=== PATIENT | female | born 1995 | race Caucasian/White ===

== ENCOUNTER → 2023-02-24 08:49 | Outpatient (CLI) | payer OTHER, SELFPAY | PROVIDERS: PCP Physician Assistant; Visit Provider Student in an Organized Health Care Education/Training Program | DX: H60.399 Other infective otitis externa, unspecified ear (principal) | CPT/HCPCS: 87070; 87075; 87205 ==

== ENCOUNTER 2023-03-02 07:04 | Emergency (ER) | payer OTHER, SELFPAY ==
[2023-03-02 07:20] VITALS: BP 140/93; PULSE 99; RESP 18; TEMP 36.7; O2SAT 100; BMI 22.1
--- NOTE | 2023-03-02 07:41 | ED.SKABFB ---
HPI - Skin/Abscess/Foreign Bdy General Chief complaint: Skin/Abscess/Foreign Body Stated complaint: piercing in left ear that was infected Time Seen by Provider: 03/02/23 07:32 Source: patient Mode of arrival: Ambulatory Limitations: no limitations History of Present Illness HPI narrative: Patient seen in urgent Care/walk-in clinic 6 days ago for infected earring in the left ear. Placed on 10 days of doxycycline, on Bactroban. She states the swelling has gone down a lot. However the backside of the hearing has been covered by skin now. This is not a new earring. The earring piercing was done years ago. No history of diabetes or cellulitis. Pain free at this time. She is needing the earring to be removed. No hearing changes. Related Data Previous Rx's Medication Instructions Recorded doxycycline hyclate 100 mg capsule 100 mg PO BID 10 days #20 caps 02/24/23 mupirocin 2 % topical ointment 1 applic topical BID #22 grams 02/24/23 Allergies Allergy/AdvReac Type Severity Reaction Status Date / Time No Known Drug Allergies Allergy Unverified 02/24/23 08:09 Review of Systems Review of Systems Narrative: GENERAL: negative chills, fatigue, malaise, fever, sweats. HEENT: negative sinus pain, ear pain, sore throat, positive foreign body to left ear RESPIRATORY: negative dyspnea, cough CARDIOVASCULAR: negative chest pain, palpitations GASTROINTESTINAL: negative nausea, vomiting, abdominal pain : negative dysuria, frequency, hematuria MUSCULOSKELETAL: negative muscle or bony pain SKIN: negative rash, skin lesions NEUROLOGIC: negative weakness, numbness ROS Unobtainable: All systems reviewed & are unremarkable except as noted in HPI and below Patient History Social History Smoking Status: Never smoker Smoking Status: Never smoker alcohol intake frequency: holidays/special occasions only Substance Use Type: does not use Exam Narrative Exam Narrative: GENERAL: in no distress, not toxic not dyspneic HEAD: Normocephalic. EYES: Pupils equal round ENT: Mucous membranes moist. Examination of left ear. At the mid portion of the auricle, anteriorly the earring is visible. However posteriorly there is mild edema with skin covering over the backside of the earring. It is palpable. Nontender. Wound areas clean dry, intact. No discharge. Mild erythema at the anterior portion. No tragus tenderness. No mastoid tenderness or fullness NEURO: AOx4. SKIN: Warm and dry PSYCH: Not anxious, is cooperative Initial Vital Signs Initial Vital Signs: Vital Signs Temperature 98.1 F 03/02/23 07:20 Pulse Rate 99 H 03/02/23 07:20 Respiratory Rate 18 03/02/23 07:20 Blood Pressure 140/93 H 03/02/23 07:20 Pulse Oximetry 100 03/02/23 07:20 Oxygen Delivery Method Room Air 03/02/23 07:20 Course Orders Ordered: Discontinued Medications Diphtheria/Tetanus/Acell Pertussis (Tet,Diph,Pertuss(Acell),Vac/Pf 0.5 Ml Syringe) 0.5 ml IM .ONCE ONE Stop: 03/02/23 07:41 Last Admin: 03/02/23 07:50 Dose: 0.5 ml Documented By: [place] Vital Signs Vital signs: Vital Signs - 8 hr 03/02/23 07:20 Temperature 98.1 F Pulse Rate 99 H Respiratory Rate 18 Blood Pressure 140/93 H Pulse Oximetry 100 Oxygen Delivery Method Room Air MDM - Skin/Abscess/Foreign Bdy MDM Narrative Medical decision making narrative: Patient seen in urgent Care/walk-in clinic 6 days ago for infected earring in the left ear. Placed on 10 days of doxycycline, on Bactroban. She states the swelling has gone down a lot. However the backside of the hearing has been covered by skin now. This is not a new earring. The earring piercing was done years ago. No history of diabetes or cellulitis. Pain free at this time. She is needing the earring to be removed. No hearing changes. After history and exam Tdap, consult ENT MDM CC: Left ear foreign body Complicating co-morbidities: None Data collected from: Patient Medical records reviewed: Walk-in clinic notes from 6 days ago Differential considered: Includes but not limited to cellulitis abscess retained foreign body Exam documented above, pertinent findings include: Retained foreign body left ear Consultations: 7:[address] Sidney Watts, otolaryngology/ENT, not urgent to take out hearing as it is healing and improving. Removal of ear ring can be done in the office setting. Patient to call office today, may need referral from insurance company. Treatments: Tdap Re-evaluations: Reviewed with patient physical exam as well as my discussion with Dr. Watts, she does agree with treatment plan. She will continue to complete the 10 day course of doxycycline as it is helping and improving. Return precautions reviewed with her. She will call her [employer] insurance for any referral as needed. She will call Dr. Watts office today for next appointment time available. Nontoxic at discharge. She desires discharge home. Return precautions reviewed with her. Discussion: Appropriate for discharge home. Infection is healing, no urgent removal of earring indicated at this time. I did review with Otolaryngology Dr. Watts. Appropriate for office setting to remove the ear ring Diagnosis: Left ear foreign body Discharge Plan Departure Patient Disposition: Home Clinical Impression: Foreign body in ear lobe Qualifiers: Encounter type: initial encounter Laterality: left Qualified Code(s): S00.452A - Superficial foreign body of left ear, initial encounter Instructions: DI for Wound Infection Activity Restrictions/Additional Instructions: Please call Dr. Sidney Watts, [facility], office today to make appointment. You need to be seen in the [place] office with him. Please inform the office staff that he was contacted today. You may need referral from your insurance company for visit. Please do continue and finish the course of antibiotics and ointment. Return if worse if any questions or concerns. The earring will be needed to be removed in the office with Dr. Sidney Watts Prescriptions: No Action doxycycline hyclate 100 mg capsule 100 mg PO BID 10 Days Qty: 20 0RF mupirocin 2 % ointment 1 applic topical BID Qty: 22 0RF Referrals: Hilda Tobar PA-C [Primary Care Provider] - Sidney Watts MD [Physician] - Stand Alone Forms: Patient Portal/API
[2023-03-02] MEDS: TET,DIPH,PERTUSS(ACELL),VAC/PF 0.5 ML SYRINGE IM (07:50)
== END 2023-03-02 07:52 | disposition home or self-care (01) ==
PROVIDERS: Emergency Provider Emergency Medicine; PCP Physician Assistant
DX: S00.452A Superficial foreign body of left ear, initial encounter (principal); Z23 Encounter for immunization
CPT/HCPCS: 90471; 99283; 90715

== ENCOUNTER → 2024-09-04 15:04 | Outpatient (CLI) | payer OTHER, SELFPAY ==
[2024-09-04 16:02] LABS: Add Manual Diff / Slide Review NO; Basophils Absolute Auto 0 /uL (0-100); Basophils Percent Auto 0.4 % (0-2); Eosinophils Absolute Auto 100 /uL (0-450); Eosinophils Percent Auto 0.7 % (2-4); Hematocrit 37.4 % (36-46); Hemoglobin 12.8 g/dL (12.0-16.0); Lymphocytes Absolute Auto 2000 /uL (1100-4500); Lymphocytes Percent Auto 19.8 % (25-40); Mean Corpuscular HGB Conc 34.1 % (30-36); Mean Corpuscular Hemoglobin 31.3 PG (26-34); Mean Corpuscular Volume 91.9 fL (80-100); Monocytes Absolute Auto 700 /uL (0-900); Monocytes Percent Auto 6.8 % (3-14); Neutrophils Absolute Auto 7300 /uL (1500-7000); Neutrophils Percent Auto 72.3 % (50-75); Platelet Count 300 X10^3/uL (150-400); Red Blood Cell Count 4.08 X10^6/uL (4.0-5.2)
[2024-09-05 15:41] LABS: Hepatitis B Surface Antigen NEGATIVE s/c (NEGATIVE)
[2024-09-05 16:34] LABS: HIV 1 & 2 Ab/Ag 4th Gen Combo NEGATIVE (NEGATIVE); Hep C Virus Ab w/Reflex Quant NEGATIVE s/c (NEGATIVE)
[2024-09-06 05:40] LABS: RPR Screen Non Reactive (Non Reactive)
[2024-09-06 09:09] LABS: Varicella IgG Antibody Reactive (Non Reactive)
== END ==
PROVIDERS: PCP Student in an Organized Health Care Education/Training Program; Referring Provider Student in an Organized Health Care Education/Training Program; Visit Provider Student in an Organized Health Care Education/Training Program
DX: Z34.00 Encounter for supervision of normal first pregnancy, unspecified trimester (principal)
CPT/HCPCS: 36415; 80055; 86787; 86803; 86850; 86900; 86901; 87389

== ENCOUNTER → 2024-11-21 06:43 | Outpatient (CLI) | payer OTHER, SELFPAY ==
--- NOTE | 2024-11-21 06:44 | DI.US.S_ITS ---
PROCEDURE: US OB >= 14 WEEKS FETUS INDICATIONS: anatomy scan OUTSIDE/PRIOR DATING DATA: Last menstrual period (LMP): 07/03/2024 LMP-based estimated date of delivery (RENAE): 04/09/2025 First dating scan (date and location): 09/04/2024 Estimated date of delivery (RENAE) from first dating scan: 04/09/2025. The calculations are made using the working RENAE of 04/09/2025. TECHNIQUE: Real-time scanning was performed of the fetus, with image documentation and biometric measurements. Endovaginal scanning: Not performed COMPARISON: None. FINDINGS: General: A single living intrauterine gestation is present. Presentation: Breech Placenta: Placental position is posterior, without previa. Amniotic fluid index: 14.0 cm, normal range is 5-24 cm. Single deepest vertical pocket is 4.6 cm. heart rate: 141 beats per minute. Maternal cervical canal: Closed and measures 3.2 cm long. Normal lower limit is 2.5 cm. biometrics: Biparietal diameter: 4.9 cm, 20 weeks, 6 days. Head circumference: 18.1 cm, 20 weeks, 3 days. Abdominal circumference: 15.2 cm, 20 weeks, 3 days. Femur length: 3.4 cm, 20 weeks, 5 days. Clinically estimated gestational age: 20 weeks, 1 day Composite gestational age from present scan: 20 weeks, 4 days Estimated weight and percentile: 364 grams, 71 percent. Anatomic survey: Neuro: Ventricles are non-dilated at less than 10 mm. Cisterna magna is normal at 3-11 mm. Cerebellum is normal in size and morphology. Nuchal skin fold: Normal at less than 6 mm between 14-21 weeks gestational age. Face: Nose and lips, facial profile are normal. Spine: No evidence for spina bifida. Heart: 4-chambered heart is present, with normal ventricular outflow tracts. Diaphragm: Diaphragm is intact. Stomach: Left-sided stomach is present. Kidneys: No hydronephrosis. Normal is less than 5 mm in 2nd trimester, less than 7 mm in 3rd trimester. Cord: 3-vessel cord has orthotopic insertion. Bladder: Normal in size. Extremities: All 4 extremities identified. IMPRESSION: 1. Single live intrauterine gestation with fetus in breech presentation. heart rate is 141 beats per minute. Normal FREDDY at 14.0 cm. 2. Normal growth. Estimated weight is at 71 percent. 3. Normal anatomic survey. We strive to produce accurate, complete, and clear reports of imaging services. To assist us in improving patient care, this report was composed using standard report templates and voice recognition software. Therefore, it may contain abnormal punctuation, insertions and/or omissions. Occasional wrong-word or sound-alike substitutions may occur. Though we review the report and make efforts to correct it, we do recommend that the report be read carefully in proper context to recognize any text inaccuracies. Dictated by: Donald Plasencia M.D. on 11/21/2024 at 11:40 Approved by: Donald Plasencia M.D. on 11/21/2024 at 11:43
== END ==
PROVIDERS: Family Provider Student in an Organized Health Care Education/Training Program; PCP Student in an Organized Health Care Education/Training Program; Referring Provider Student in an Organized Health Care Education/Training Program; Visit Provider Student in an Organized Health Care Education/Training Program
DX: O32.1XX0 Maternal care for breech presentation, not applicable or unspecified (principal); Z3A.28 28 weeks gestation of pregnancy
CPT/HCPCS: 76811

== ENCOUNTER → 2025-02-02 11:11 | Outpatient (CLI) | payer OTHER, SELFPAY | LOC: LAB 11:12 | PROVIDERS: Family Provider Student in an Organized Health Care Education/Training Program; PCP Student in an Organized Health Care Education/Training Program; Visit Provider Student in an Organized Health Care Education/Training Program | DX: N89.8 Other specified noninflammatory disorders of vagina (principal); Z3A.30 30 weeks gestation of pregnancy | CPT/HCPCS: 87210 ==

== ENCOUNTER → 2025-03-13 10:43 | Outpatient (CLI) | payer OTHER, SELFPAY ==
[2025-03-14 12:24] LABS: Strep Grp B PCR NEG for Grp B Strep
== END ==
PROVIDERS: PCP Student in an Organized Health Care Education/Training Program; Visit Provider Student in an Organized Health Care Education/Training Program
DX: Z34.93 Encounter for supervision of normal pregnancy, unspecified, third trimester (principal); Z3A.36 36 weeks gestation of pregnancy
CPT/HCPCS: 87653

== ENCOUNTER → 2025-03-26 10:29 | Outpatient (CLI) | payer OTHER, SELFPAY ==
[2025-03-26 10:52] LABS: Add Manual Diff / Slide Review NO; Hematocrit 39.6 % (36-46); Hemoglobin 13.7 g/dL (12.0-16.0); Lymphocytes Absolute Auto 2200 /uL (1100-4500); Mean Corpuscular HGB Conc 34.6 % (30-36); Mean Corpuscular Hemoglobin 31.6 PG (26-34); Mean Corpuscular Volume 91.2 fL (80-100); Platelet Count 217 X10^3/uL (150-400)
[2025-03-26 11:35] LABS: Alanine Aminotransferase 13 IU/L (<35); Albumin 3.8 g/dL (3.5-5.0); Albumin Globulin Ratio 1.3 (1.0-2.8); Alkaline Phosphatase 286 U/L (38-126); Blood Urea Nitrogen 14 mg/dL (7-17); Calcium 9.6 mg/dL (8.4-10.2); Carbon Dioxide 19 mmol/L (22-32); Chloride 107 mmol/L (98-107); Estimated Glomerular Filt Rate > 60 mL/min (>60); Globulin 3.0 g/dL (1.7-4.1); Glucose 87 mg/dL (70-99); HEMOLYSIS < 15 (0-50); Potassium 4.1 mmol/L (3.4-5.1); Sodium 136 mmol/L (137-145); Total Protein 6.8 g/dL (6.3-8.2)
== END ==
PROVIDERS: PCP Student in an Organized Health Care Education/Training Program; Referring Provider Student in an Organized Health Care Education/Training Program; Visit Provider Student in an Organized Health Care Education/Training Program
DX: L29.89 Other pruritus (principal)
CPT/HCPCS: 36415; 80053; 82239; 85025

== ENCOUNTER 2025-03-29 09:15 | Outpatient (CLI) | payer OTHER, SELFPAY ==
[2025-03-29 10:13] LABS: Add Manual Diff / Slide Review NO; Hematocrit 38.3 % (36-46); Hemoglobin 13.4 g/dL (12.0-16.0); Lymphocytes Absolute Auto 1600 /uL (1100-4500); Mean Corpuscular HGB Conc 34.9 % (30-36); Mean Corpuscular Hemoglobin 31.9 PG (26-34); Mean Corpuscular Volume 91.4 fL (80-100); Platelet Count 191 X10^3/uL (150-400)
[2025-03-29 10:25] LABS: Alanine Aminotransferase 13 IU/L (<35); Albumin 3.8 g/dL (3.5-5.0); Albumin Globulin Ratio 1.2 (1.0-2.8); Alkaline Phosphatase 275 U/L (38-126); Blood Urea Nitrogen 14 mg/dL (7-17); Calcium 9.0 mg/dL (8.4-10.2); Carbon Dioxide 18 mmol/L (22-32); Chloride 111 mmol/L (98-107); Estimated Glomerular Filt Rate > 60 mL/min (>60); Globulin 3.2 g/dL (1.7-4.1); Glucose 80 mg/dL (70-99); HEMOLYSIS < 15 (0-50); Potassium 3.9 mmol/L (3.4-5.1); Sodium 137 mmol/L (137-145); Total Protein 7.0 g/dL (6.3-8.2); Uric Acid 6.0 mg/dL (2.5-6.2)
[2025-03-29 10:47] LABS: Protein (Total) Urine Random 12 mg/dL (0-12); Protein Creatinine Ratio Urine 0.30 GRAM/24H
--- NOTE | 2025-03-29 10:50 | PM.OBTRLD ---
Visit Information Visit Information Date of evaluation: 03/29/25 Primary OB Provider: Ami Albert Reason for Evaluation: Yes non-stress test Comments/Additional reasons for admission: This si a 30 yo G1 at 38w3d here for NST in setting of worsening pruritis. Awaiting bile acid labs. [facility] Medical History (Updated 03/26/25 @ 10:18 by Ami Albert MD) Infected pierced ear (~2022) Surgical History (Updated 08/22/24 @ 09:38 by Lilly Denise, RN) [place] teeth extracted Family History (Updated 08/22/24 @ 09:41 by Lilly Denise, RN) Father Adopted Scalp cyst Mother Hypothyroidism History of recurrent miscarriages Grandfather Hypothyroidism Depression Brother Depression Anxiety Social History marital status: number of children: 0 household members: spouse lives independently: Yes caregiver/support person: No housing: house pets and animals: Yes (dogs) education level: college (4 year degree) 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) current occupational exposures/hazards: No special ammy needs: No travel history: recent ([place]) seatbelt use: always helmet use: Yes water heater temp set < 120 deg: Yes working smoke detector in home: Yes fire extinguisher in home: Yes carbon monox detector in home: Yes firearms in home: No do you feel safe at home: Yes second hand exposure: Yes (friend who vapes) alcohol intake: former (occasional 1-2 drinks when not ) substance use type: does not use during the past year weight has: remained stable well-balanced diet: rarely or never daily servings fruits/ve-1 (1-2) caffeine: Yes (single cup coffee in AM) Type(s) of exercise: walking, bicycling and other (horseback riding) Objective Labs 03/29/25 09:53 03/29/25 09:53 Labs: Laboratory Results - last 24 hr 03/29/25 09:53 WBC 6.8 RBC 4.19 Hgb 13.4 Hct 38.3 MCV 91.4 MCH 31.9 MCHC 34.9 RDW 13.0 Plt Count 191 Neut % (Auto) 66.5 Lymph % (Auto) 23.0 L [place] % (Auto) 8.6 Eos % (Auto) 1.6 L Baso % (Auto) 0.3 Neut # (Auto) 4500 Lymph # (Auto) 1600 [place] # (Auto) 600 Eos # (Auto) 100 Baso # (Auto) 0 Sodium 137 Potassium 3.9 Chloride 111 H Carbon Dioxide 18 L BUN 14 Creatinine 0.87 Estimated GFR > 60 BUN/Creatinine Ratio 16.1 Glucose 80 Uric Acid 6.0 Calcium 9.0 Total Bilirubin 0.2 AST 26 ALT 13 Alkaline Phosphatase 275 H Total Protein 7.0 Albumin 3.8 Globulin 3.2 Albumin/Globulin Ratio 1.2 Blood Type O Positive Antibody Screen Negative Evaluation Evaluation Baseline heart rate: 125 Variability: Moderate (6-25) monitor accelerations: Present Monitor Decelerations: Late (one noted) Diagnosis, Plan/Disposition Plan/Disposition Plan: 30 yo G1 at 38w3d here for NST in setting of worsening pruritus while awaiting bile acids. NST reactive. CBC/CMP wnl. -safe for discharge home OB Disposition: home
== END 2025-03-29 11:01 | disposition home or self-care (01) ==
LOC: LABOR 11:34 → OB 03-30 09:33
PROVIDERS: PCP Student in an Organized Health Care Education/Training Program; Referring Provider Student in an Organized Health Care Education/Training Program; Visit Provider Student in an Organized Health Care Education/Training Program
DX: O26.893 Other specified pregnancy related conditions, third trimester (principal); L29.9 Pruritus, unspecified; Z3A.38 38 weeks gestation of pregnancy
CPT/HCPCS: 36415; 59025; 80053; 84550; 85025; 86850; 86900; 86901; G0378; G0379

== ENCOUNTER → 2025-04-04 14:50 | Outpatient (CLI) | payer OTHER, SELFPAY ==
--- NOTE | 2025-04-04 14:50 | DI.US.S_ITS ---
PROCEDURE: US OB LIMITED INDICATIONS: Growth Restriction OUTSIDE/PRIOR DATING DATA: Last menstrual period (LMP): 07/03/2024 LMP-based estimated date of delivery (RENAE): 04/09/2025 First dating scan (date and location): 09/04/2024 Estimated date of delivery (RENAE) from first dating scan: 04/09/2025 The calculations are made using the working RENAE of 04/09/2025 TECHNIQUE: Real-time scanning was performed of the fetus, with image documentation and biometric measurements. Endovaginal scanning: Not performed. COMPARISON: 11/21/2024. FINDINGS: General: A single living intrauterine gestation is present. Presentation: Vertex. Placenta: Placental position is posterior, without previa. Amniotic fluid index: 9.2 cm, normal range is 5-24 cm. Single deepest vertical pocket is 3.8 cm. heart rate: 119 beats per minute. Maternal cervical canal: Not well seen. biometrics: Biparietal diameter: 9.1 cm, 36 weeks, 6 days. Head circumference: 31.7 cm, 35 weeks, 4 days. Abdominal circumference: 32.7 cm, 36 weeks, 4 days. Femur length: 7.0 cm, 36 weeks 0 day. Clinically estimated gestational age: 39 weeks, 2 days Composite gestational age from present scan: 36 weeks, 2 days Estimated weight and percentile: 2922 g, 10%. Other: No cul cord is seen wrapped around the neck twice IMPRESSION: 1. Single live intrauterine gestation with fetus in vertex presentation. heart rate is 119 beats per minute. Normal FREDDY at 9.2 cm. 2. Estimated weight is at 10% as above. 3. Suggestion of nuchal cord around the neck twice suggest ultrasound follow-up. We strive to produce accurate, complete, and clear reports of imaging services. To assist us in improving patient care, this report was composed using standard report templates and voice recognition software. Therefore, it may contain abnormal punctuation, insertions and/or omissions. Occasional wrong-word or sound-alike substitutions may occur. Though we review the report and make efforts to correct it, we do recommend that the report be read carefully in proper context to recognize any text inaccuracies. Dictated by: Donald Plasencia M.D. on 04/04/2025 at 16:03 Approved by: Donald Plasencia M.D. on 04/04/2025 at 16:06
== END ==
LOC: US 14:50
PROVIDERS: PCP Student in an Organized Health Care Education/Training Program; Referring Provider Student in an Organized Health Care Education/Training Program; Visit Provider Student in an Organized Health Care Education/Training Program
DX: O36.5930 Maternal care for other known or suspected poor fetal growth, third trimester, not applicable or unspecified (principal); Z3A.39 39 weeks gestation of pregnancy
CPT/HCPCS: 76815

== ENCOUNTER 2025-04-04 19:45 | Outpatient (CLI) | payer OTHER, SELFPAY ==
--- NOTE | 2025-04-04 | DI.US.S_ITS ---
PROCEDURE: US UMBILICAL CORD DOPPLER INDICATIONS: GROWTH RESTRICTION OUTSIDE/PRIOR DATING DATA: Last menstrual period (LMP): 07/03/2024 LMP-based estimated date of delivery (RENAE): 04/09/2025 First dating scan (date and location): 09/04/2024 Estimated date of delivery (RENAE) from first dating scan: 04/09/2025 The calculations are made using the clinical RENAE of 04/09/2025. COMPARISON: Ob ultrasound 04/04/2025, 11/21/2024. TECHNIQUE: Real-time scanning was performed of the fetus, with image documentation. Color and pulse Doppler interrogation was then performed of the umbilical artery near its insertion into the placenta. FINDINGS: General: Single living intrauterine gestation is present in vertex presentation. heart rate of 157 beats per minute. Umbilical artery: Umbilical artery S/D ratio is of 2.7, 2.1 and 2.0 IMPRESSION: Normal umbilical artery S/D ratios. Approved by: Niki Collazo M.D.,Ph.D. on 04/04/2025 at 21:20
== END 2025-04-04 21:45 | disposition home or self-care (01) ==
LOC: LABOR 19:50 → OB 04-05 06:54
PROVIDERS: PCP Student in an Organized Health Care Education/Training Program; Referring Provider Student in an Organized Health Care Education/Training Program; Visit Provider Student in an Organized Health Care Education/Training Program
DX: O36.5930 Maternal care for other known or suspected poor fetal growth, third trimester, not applicable or unspecified (principal); Z3A.39 39 weeks gestation of pregnancy
CPT/HCPCS: 59025; 59050; 76820; G0378; G0379

== ENCOUNTER 2025-04-05 08:16 | Inpatient (IN) | payer OTHER, SELFPAY ==
--- NOTE | 2025-04-05 08:46 | PM.OBHP.IH.1 ---
OB HPI Date/Time Date of admission: 04/05/25 History of Present Condition Chief complaint: INDUCTION RENAE Calculator Estimated Delivery Date Method Current WG Current Estimate 04/09/25 LMP (Certain) 39w 3d Other Estimates 04/09/25 Ultrasound #1 39w 3d : 1 care: good care Dating criteria OB: LMP confirmed by 1st trimester US Ultrasounds: normal 1st trimester US, normal mid trimester US and abnormal US findings (EFW 10th percentile at 39 weeks) Obstetrical complications: growth restriction Medical complications OB: none Narrative: This is a 30 yo G1 at 39w3d here for mIOL for growth restriction discovered yesterday at 39w2d. EFW 10th percentile. Umbilical artery dopplers normal flow. otherwise complicated by itching (bile acids negative). GBS negative. Good movement. Indications Indication for induction OB: intra-uterine growth restriction Preadmission Labs Last OB Lab Results: Blood Type O Positive 03/29/25, 09:53 Antibody Screen Negative 03/29/25, 09:53 Hct, (36-46) 38.3 % 03/29/25, 09:53 Hgb, (12.0-16.0) 13.4 g/dL 03/29/25, 09:53 Hep Bs Antigen, (NEGATIVE) Negative s/c 09/04/24, 15:13 Hepatitis C Antibody, (NEGATIVE) Negative s/c 09/04/24, 15:13 Rubella Antibody, (>15) 335.0 IU/mL 09/04/24, 15:13 VZV IgG Antibody, (Non Reactive) Reactive 09/04/24, 15:13 Glucose 1 Hr 50 gm, (76-139) 85 mg/dL 01/02/25, 08:15 Group B Strep (PCR) Neg for grp b strep 03/13/25, 10:28 Glucose Tolerance Testin hr Genetic Screens: Cell-free DNA: Normal Evaluation Evaluation Baseline heart rate: 135 Variability: Moderate (6-25) monitor accelerations: Present Monitor Decelerations: Absent Category of Tracing: Reactive PFSH Medical History (Updated 03/26/25 @ 10:18 by Ami Albert MD) Infected pierced ear (~2022) Surgical History (Updated 08/22/24 @ 09:38 by Lilly Denise RN) [place] teeth extracted Family History (Updated 08/22/24 @ 09:41 by Lilly Denise RN) Father Adopted Scalp cyst Mother Hypothyroidism History of recurrent miscarriages Grandfather Hypothyroidism Depression Brother Depression Anxiety Social History marital status: number of children: 0 household members: spouse lives independently: Yes caregiver/support person: No housing: house pets and animals: Yes (dogs) education level: college (4 year degree) 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) current occupational exposures/hazards: No special ammy needs: No travel history: recent ([place]) seatbelt use: always helmet use: Yes water heater temp set < 120 deg: Yes working smoke detector in home: Yes fire extinguisher in home: Yes carbon monox detector in home: Yes firearms in home: No do you feel safe at home: Yes second hand exposure: Yes (friend who vapes) alcohol intake: former (occasional 1-2 drinks when not ) substance use type: does not use during the past year weight has: remained stable well-balanced diet: rarely or never daily servings fruits/ve-1 (1-2) caffeine: Yes (single cup coffee in AM) Type(s) of exercise: walking, bicycling and other (horseback riding) Meds Home Medications and Allergies Home Medications ?Medication ?Instructions ?Recorded ?Confirmed ?Type vitamin-ferrous sulfate tab PO 08/22/24 04/02/25 History 27 mg iron-folic acid 0.8 mg tablet Allergies Allergy/AdvReac Type Severity Reaction Status Date / Time No Known Drug Allergies Allergy Verified 04/05/25 08:30 Review of Systems Review of Systems ROS: Yes All systems reviewed with the patient and are negative except as otherwise documented Assessment and Plan Assessment and Plan Assessment and Plan narrative: 30 yo G1 at 39w3d here for mIOL for growth restriction. EFW 10th percentile. Dopplers normal. GBS neg. IOL fo FGR EFW 10th percentile. Dopplers normal. Decline SVE. No contractions. -will start with vaginal misoprostol 25 mcg -cEFM Time-Based Coding :: 30 minutes spent with patient and on the chart (including review of chart, obtaining history, exam, reviewing outside data, placing orders, documenting exam and treatment plan, and counseling patient) on 04/05/2025.
[2025-04-05 09:44] LABS: Add Manual Diff / Slide Review NO; Hematocrit 38.2 % (36-46); Hemoglobin 13.4 g/dL (12.0-16.0); Lymphocytes Absolute Auto 1800 /uL (1100-4500); Mean Corpuscular HGB Conc 35.0 % (30-36); Mean Corpuscular Hemoglobin 31.9 PG (26-34); Mean Corpuscular Volume 91.0 fL (80-100); Platelet Count 213 X10^3/uL (150-400)
[2025-04-05 09:45] LABS: Protein (Total) Urine Random 12 mg/dL (0-12); Protein Creatinine Ratio Urine 0.28 GRAM/24H
[2025-04-05 09:54] LABS: Alanine Aminotransferase 16 IU/L (<35); Albumin 4.1 g/dL (3.5-5.0); Albumin Globulin Ratio 1.2 (1.0-2.8); Alkaline Phosphatase 299 U/L (38-126); Blood Urea Nitrogen 15 mg/dL (7-17); Calcium 9.3 mg/dL (8.4-10.2); Carbon Dioxide 20 mmol/L (22-32); Chloride 108 mmol/L (98-107); Estimated Glomerular Filt Rate > 60 mL/min (>60); Globulin 3.3 g/dL (1.7-4.1); Glucose 80 mg/dL (70-99); HEMOLYSIS < 15 (0-50); Potassium 3.7 mmol/L (3.4-5.1); Sodium 136 mmol/L (137-145); Total Protein 7.4 g/dL (6.3-8.2); Uric Acid 6.7 mg/dL (2.5-6.2)
--- NOTE | 2025-04-05 15:13 | PM.OBPNLAB ---
Date/Time Date Patient Seen: 04/05/25 Pain Control Pain control: tolerating well Pelvic Exam Dilation (cm): 1 Effacement (%): 50 station: -3 Amniotic membrane status: Intact Contractions Contractions on admission: none Monitor mode: External Contraction frequency (min): 7 Contraction pattern: Irregular Contraction intensity: Mild Status status: Category l Heart Rate Baseline: 125 Monitor Accelerations: Present Monitor Decelerations: Absent Monitor Variability: Moderate Assessment and Plan Assessment: induction ongoing Plan: continuous present management Comments: 30 yo G1 at 39w3d here for mIOL for growth restriction. EFW 10th percentile. Dopplers normal. GBS neg. IOL for FGR EFW 10th percentile. Dopplers normal. SVE /-3 -s/p 25 mcg oral misoprostol -pendleton bulb placed at this time with 30 cc fluid -cEFM
[2025-04-05] MEDS: OXYTOCIN PREMIX 30 UNIT/500 ML PLAST..BAG IV (17:15)
[2025-04-05] MEDS: LACTATED RINGERS 1,000 ML 100 ML IV (17:15)
[2025-04-06] MEDS: fentaNYL 100 MCG/2 ML INJ 50 MCG IV (00:41)
--- NOTE | 2025-04-06 02:18 | PM.ANES.PR ---
Operative Date/Time/Diagnoses Date of procedure: 04/06/25 Time of procedure: 01:50 Pre-op diagnosis: Post-op diagnosis: same Note Patient called to request labor epidural while in labor. c/o pain 11/23 at present. H&P reviewed with patient and spouse and risks/benefits/alternatives discussed with patient. She is amenable to proceeding with labor epidural placement.
--- NOTE | 2025-04-06 02:23 | PM.AN.REGBLK ---
Regional Block Pre-procedure Procedure: Continuous Lumbar Epidural for L&D Attending OB provider: Ami Albert PMH/ROS narrative: Patient requests labor epidural. H&P reviewed. Please see OB RN flowsheet for vitals. Vitals prior to procedure: 129/70, HR 79, Spo2 99% ASA Class: II Labs: Hct 38.2 % (36-46) 04/05/25 09:25 Plt Count 213 X10^3/uL (150-400) 04/05/25 09:25 Medications: Current Medications Generic Name Dose Route Start Last Admin Trade Name Freq PRN Reason Stop Dose Admin Calcium Carbonate 1,000 mg 04/05/25 08:18 Calcium Carbonate 500 Mg Tab PO Q2HR PRN Dyspepsia Carboprost Tromethamine 250 mcg 04/05/25 08:18 Carboprost 250 Mcg/Ml Ampul IM Q90M PRN Bleeding Fentanyl 50 mcg 04/05/25 08:18 04/06/25 00:41 Fentanyl 100 Mcg/2 Ml Inj IV 50 mcg Q1H PRN Administration Pain, Moderate (4-6) Oxytocin/Lactated Ringer's 30 unit in 500 mls @ 200 mls/hr 04/05/25 08:18 Oxytocin Premix IV CONT PRN Bleeding Protocol Tranexamic Acid 1,000 mg/ 100 mls @ 600 mls/hr 04/05/25 08:18 Sodium Chloride IV NOW PRN Bleeding Oxytocin/Lactated Ringer's 30 unit in 500 mls @ 2 mls/hr 04/05/25 17:04 04/05/25 17:15 Oxytocin Premix IV 1 milliunit/min TITRATE KRISTEN 1 mls/hr Protocol Administration 2 MILLIUNIT/MIN Lactated Ringer's 1,000 mls @ 999 mls/hr 04/06/25 01:35 Lactated Ringers IV 04/06/25 02:35 BOLUS ONE FENT 2MCG/ML BUPIV 0.125% EPI 200 mcg in 100 mls @ 12 mls/hr 04/06/25 01:45 Fentanyl/Bupiv/Ns 2mcg/Ml - 0.125% EPIDURAL CONT KRISTEN Protocol Lidocaine HCl 20 ml 04/05/25 08:18 Lidocaine 1% 20 Ml INJ INTRA-OP PRN Post Delivery Methylergonovine Maleate 0.2 mg 04/05/25 08:18 Methylergonovine 0.2 Mg Tablet PO Q6HR PRN Heavy Bleeding Methylergonovine Maleate 0.2 mg 04/05/25 08:18 Methylergonovine 0.2 Mg/Ml Vial IM NOW PRN Bleeding Metoclopramide HCl 10 mg 04/06/25 01:35 Metoclopramide 10 Mg/2 Ml Inj IV Q30MIN PRN Nausea And Vomiting Mineral Oil 30 ml 04/05/25 08:18 Mineral Oil 30 Ml Udc TOP PRN PRN Version Misoprostol 25 mcg 04/05/25 08:18 04/05/25 12:35 Misoprostol 25 Mcg Tablet VAG 25 mcg Q4H PRN Administration cervical ripening Misoprostol 400 mcg 04/05/25 08:18 Misoprostol 200 Mcg Tablet SL NOW PRN Bleeding Misoprostol 800 mcg 04/05/25 08:18 Misoprostol 200 Mcg Tablet NJ NOW PRN Bleeding Nalbuphine HCl 5 mg 04/06/25 01:35 Nalbuphine 20 Mg/Ml Ampul IV Q6H PRN Pruritus Naloxone HCl 0.2 mg 04/05/25 08:18 Naloxone 0.4 Mg/Ml Vial IV Q2MIN PRN Opiate Reversal Ondansetron HCl 4 mg 04/05/25 08:18 Ondansetron 4 Mg/2 Ml Inj IV Q4HR PRN Nausea And Vomiting Ondansetron HCl 4 mg 04/06/25 01:35 Ondansetron 4 Mg/2 Ml Inj IV Q4H PRN Nausea And Vomiting Oxytocin 10 unit 04/05/25 08:18 Oxytocin 10 Unit/Ml Vial IM NOW PRN Bleeding Allergies: Allergies Allergy/AdvReac Type Severity Reaction Status Date / Time No Known Drug Allergies Allergy Verified 04/05/25 08:30 Procedure Insertion date: 04/06/25 Insertion time: 01:59 Prep/Local: betadine x3 (chloraprep ) and 1% lidocaine Interspace: L3-4 Patient position: sitting Needle: 17 gauge Tuohy Loss of resistance with: air ANGEL at (cm): 5 Catheter placed at SKIN (cm): 9 Catheter in SPACE (cm): 4 Insertion: Yes CSF Initial Medications TEST DOSE time: 02:00 Infusion Initial rate (mL/hr): 12 Subsequent interventions: CSE w/ 10 mcg IT fentanyl and 90ncg EPI fentanyl Post-procedure Anesthesia date START: 04/06/25 Anesthesia time START: 01:20
--- NOTE | 2025-04-06 05:50 | PM.OBPRVD ---
Events: Labor Induction Labor & Delivery Delivery date: 04/06/25 Delivery Time: 05:05 Intrapartal Events: None Cervical ripening method: per misoprostal protocol Induction method: per pitocin protocol Delivery monitor: external FHT Route of delivery: L&D Laceration Description: Perineal - 2nd Degree Delivery repair: vicryl Estimated blood loss (mL): 250 Anesthesia Type: Epidural Narrative: The patient progressed to C/C/+2 following IOL with misoprostol, pendleton bulb and pitocin augmentation. She had epidural anesthesia. After approximately 30 minutes of maternal pushing efforts, the infant delivered in OA position and restituted ADRIANNA. The anterior shoulder delivered with gentle downward pressure. The posterior shoulder and rest of body delivered with ease. The cord was doubly clamped and cut after a 3 min delay with the infant placed on maternal abdomen. The placenta delivered spontaneously and was intact with a 3-vessel cord. The fundus was noted to be firm with bimanual massage and pitocin. Inspection of the cervix, vagina, and perineum was notable for a 2nd degree laceration. Repair was performed using 3-0 Vicryl in a running, unlocked fashion/[id number] suture/simple interrupted suture. Skin was reapproximated in a running, subcuticular fashion. At the end of the repair, all tissues noted to be hemostatic. All sponges were removed from the vagina. The patient tolerated delivery well and remained in the labor room with the infant at the bedside. Plan for aftercare: Routine care
[2025-04-06] MEDS: DERMOPLAST SPRAY 20% 60 ML 1 SPRAY TOP (07:59)
[2025-04-06] MEDS: FERROUS SULFATE 325 MG TABLET PO (09:15)
[2025-04-06] MEDS: IBUPROFEN 600 MG TABLET PO ×3 (09:15→20:50)
[2025-04-06] MEDS: PRENATAL VIT,CALC/IRON/FOLIC 1 TABLET 1 TAB PO (09:15)
[2025-04-06] MEDS: DOCUSATE 100 MG CAPSULE PO (09:15)
[2025-04-06] MEDS: ACETAMINOPHEN 325 MG TABLET 650 MG PO (18:59)
[2025-04-07] MEDS: ACETAMINOPHEN 325 MG TABLET 650 MG PO ×2 (03:12→09:08)
[2025-04-07] MEDS: IBUPROFEN 600 MG TABLET PO ×2 (03:12→09:09)
[2025-04-07] MEDS: FERROUS SULFATE 325 MG TABLET PO (09:08)
[2025-04-07] MEDS: DOCUSATE 100 MG CAPSULE PO (09:09)
[2025-04-07] MEDS: PRENATAL VIT,CALC/IRON/FOLIC 1 TABLET 1 TAB PO (09:10)
--- NOTE | 2025-04-07 10:15 | PM.OBDS.1 ---
Discharge Providers Provider Date of admission: 04/05/25 08:16 Discharge Date: 04/07/25 Primary care physician: Ami Albert MD Consults: 04/05/25 08:18 Consult to Anesthesiology Urgent Comment: Consulting Provider: Anesthesiologist Reason for consultation: Epidural 04/06/25 07:28 Consult to Billing Administrator Routine Comment: Discharge provider: Ami Albert MD Summary Hospital Course Date Patient Seen: 04/07/25 Time Patient Seen: 09:00 Hospital Course: This is a 30 yo G1 now P1 who was admitted at 39w3d and delivered at 39w4d following mIOL for FGR (10th percentile). Baby was born via following IOL with miso, pendleton bulb, and pitocin. Baby was AGA (17th percentile). Baby is well. Mom is ambulating well. Bleeding normal. +Voiding. Pain well controlled. Peripartum Data Delivery Method: Natural Vaginal Laceration Description: Perineal - 2nd Degree complications: none Status at Discharge Cognitive/behavioral status at discharge: oriented Functional status at discharge: independent ambulation Overall status at discharge: patient is back to baseline Time Spent with Patient Time attestation: Total time spent providing and/or coordinating discharge services: 30 minutes Time spent: Greater than 30 minutes Objective Labs 04/05/25 09:25 04/05/25 09:25 Discharge Plan Discharge Plan Patient Disposition: Home Discharge orders & Medications Prescriptions: New acetaminophen 325 mg Tablet 650 mg PO Q6H PRN (Reason: Pain, Mild (1-3)) 30 Days Qty: 60 0RF docusate sodium 100 mg Capsule 100 mg PO DAILY 30 Days Qty: 30 0RF ibuprofen 600 mg Tablet 600 mg PO Q6H 30 Days Qty: 120 0RF Continued vit-ferrous sulfat-FA 27 mg iron- 0.8 mg tablet PO Follow up/Referrals: Ami Albert MD [Primary Care Provider, Family Practice] - 05/07/25 11:15 am Referral Note: 6 week post check up, this appointment is for both Mother and Baby. Please arrive 15 minutes prior to your scheduled appointment time. Visit Report/Discharge Packet Stand Alone Forms: Discharge: Care, Patient Portal/API, Stroke Signs & Symptoms Discharge Data Primary Care Provider: Ami Albert
== END 2025-04-07 12:05 | disposition home or self-care (01) | DRG 807 ==
PROVIDERS: Admitting Provider Student in an Organized Health Care Education/Training Program; PCP Student in an Organized Health Care Education/Training Program; Referring Provider Student in an Organized Health Care Education/Training Program; Visit Provider Student in an Organized Health Care Education/Training Program
DX: O36.5930 Maternal care for other known or suspected poor fetal growth, third trimester, not applicable or unspecified (principal); Z37.0 Single live birth; O70.1 Second degree perineal laceration during delivery; Z3A.39 39 weeks gestation of pregnancy; Z67.40 Type O blood, Rh positive
CPT/HCPCS: 59025; 59050; 59200; 59400; 76815; 76820; 80053; 84550; 85025; 86850; 86900; 86901; G0379; J2590; J3010; J7120